=== PATIENT | female | born 1965 | race Hispanic/Latino ===

== ENCOUNTER → 2018-07-06 | Outpatient (CLI) | payer OTHER ==
--- NOTE | 2018-07-06 14:13 | Diagnostic Imaging Report ---
PROCEDURE: BARIUM SWALLOW/ESOPHAGRAM was performed with Sodium Carbonate and Barium. COMPARISON: None. INDICATIONS: GERD FINDINGS: Swallow: The swallowing mechanism was grossly normal. The esophagus was normally distensible and the mucosa was within normal limits. Esophageal motility was within normal limits. Gastroesophageal junction: There is a small sliding hiatal hernia Reflux: Assessment for gastroesophageal reflux demonstrated no evidence of reflux. The visualized portion of the stomach and proximal small bowel are unremarkable. Fluoroscopy time: 1.5 minutes Total dose: 15.98 DAP: 3.646 IMPRESSION: Small sliding hiatal hernia. Jose Rodriguez D.O. Dictated by: Jose Rodriguez D.O. on 07/06/2018 at 14:25 Electronically approved by: Jose Rodriguez D.O. on 07/06/2018 at 14:25
== END ==
LOC: DX 07:34
PROVIDERS: ATTEND Internal Medicine Gastroenterology
DX: K21.0 Gastro-esophageal reflux disease with esophagitis (principal); R11.2 Nausea with vomiting, unspecified; K44.9 Diaphragmatic hernia without obstruction or gangrene
CPT/HCPCS: 74220

== ENCOUNTER 2022-02-28 13:19 | Emergency (ER) | payer OTHER ==
[~2022-02-28] VITALS: Ht 165.1 cm; Wt 65.8 kg
[2022-02-28] MEDS ORDERED: OXYMETAZOLINE HCL 0.05% NAS 1 SPRAY BTL STA (13:28)
[2022-02-28 15:00] VITALS: BP 113/71
== END 2022-02-28 15:00 | disposition home or self-care (01) ==
LOC: ER 13:30
DX: R04.0 Epistaxis (principal); Z88.1 Allergy status to other antibiotic agents
CPT/HCPCS: 99283